=== PATIENT | female | born 1990 | race Caucasian/White ===

== ENCOUNTER 2018-09-23 22:19 | Inpatient (IN) | payer OTHER ==
--- NOTE | 2018-09-23 23:24 | C.PDOC ---
History Of Present Illness 28 year old female with PMHx of anxiety and hepatitis C presents to the ED requesting detox for cocaine, heroin and xanax abuse, Patient states oswald last use was today 1 hour [facility]. Patient reports she takes valium and xanax. Patient's LMP was on 08/14/18. Patient denies SI/HI, hallucinations, CP, SOB, injury, fall, trauma. Time Seen by Provider: 09/23/18 22:30 Chief Complaint (Nursing): Substance Abuse History Per: Patient History/Exam Limitations: intoxication Onset/Duration Of Symptoms: Hrs Current Symptoms Are (Timing): Still Present Modifying Factor(s): Narcotics, Cocaine, Other Associated Symptoms: denies: Depression, Suicidal Thoughts, Suicidal Plan Recent travel outside of the [place]: No Additional History Per: Patient Past Medical History Reviewed: Historical Data, Nursing Documentation, Vital Signs Vital Signs: Last Vital Signs Temp 98 F 09/23/18 22:26 Pulse 96 H 09/23/18 22:26 Resp 20 09/23/18 22:26 BP 129/88 09/23/18 22:26 Pulse Ox 99 09/23/18 22:26 - Medical History PMH: Anxiety, Hepatitis (Hep C) Denies: Diabetes, HIV, HTN, Seizures, Sexually Transmitted Disease Surgical History: - [facility] DRUG DETOXIFICATION (05/16/15) OTHER GROUP THERAPY (05/16/15) Family History: States: Unknown Family Hx - Social History Hx Alcohol Use: No Hx Substance Use: Yes - Immunization History Hx Tetanus Toxoid Vaccination: No Hx Influenza Vaccination: No Hx Pneumococcal Vaccination: No Review Of Systems Constitutional: Negative for: Fever, Chills Cardiovascular: Negative for: Chest Pain, Palpitations Respiratory: Negative for: Shortness of Breath Gastrointestinal: Negative for: Nausea, Vomiting, Abdominal Pain Skin: Negative for: Rash Neurological: Negative for: Weakness, Numbness Psych: Positive for: Anxiety. Negative for: Depression, Suicidal ideation Physical Exam - Physical Exam Appears: Non-toxic, No Acute Distress Skin: Normal Color, Warm, Dry Head: Atraumatic, Normacephalic Eye(s): bilateral: Normal Inspection Neck: Normal ROM, Supple Chest: Symmetrical Cardiovascular: Rhythm Regular Respiratory: Normal Breath Sounds, No Rales, No Rhonchi, No Wheezing Gastrointestinal/Abdominal: Soft, No Tenderness, No Guarding, No Rebound Extremity: Normal ROM, No Tenderness, No Swelling Neurological/Psych: Oriented x3, Normal Speech, Normal Cognition, Other (cooperative) Gait: Steady ED Course And Treatment - Laboratory Results Result Diagrams: 09/23/18 23:52 09/23/18 23:52 O2 Sat by Pulse Oximetry: 99 (ON RA) Pulse Ox Interpretation: Normal Medical Decision Making Medical Decision Making: Plan: * Labs * Crisis * UA Disposition - Disposition Disposition Time: 00:00 Condition: STABLE Forms: [facility] (Thai) - Clinical Impression Clinical Impression: Drug dependence - Scribe Statement The provider has reviewed the documentation as recorded by the Scribe Jordy Oliveira All medical record entries made by the Scribe were at my direction and personally dictated by me. I have reviewed the chart and agree that the record accurately reflects my personal performance of the history, physical exam, medical decision making, and the department course for this patient. I have also personally directed, reviewed, and agree with the discharge instructions and disposition. Physician Patient Turnover - . Patient Signed Over To: Alexandra Thompson Handoff Comments: pending crisis eval
[2018-09-23 23:58] LABS: BASO # 0.1 K/uL (0.0-0.2); BASO % 0.6 % (0.0-2.0); EOS # 0.1 K/uL (0.0-0.7); EOS % 0.7 % (0.0-4.0); HEMOGLOBIN 11.1 g/dL (11.0-16.0); LYMPH # 2.5 K/uL (1.0-4.3); LYMPH % 28.6 % (20.0-40.0); MEAN CELL VOLUME 81.9 fL (81.0-99.0); MEAN CORPUSCULAR HEMOGLOBIN 26.8 pg (27.0-31.0); MEAN CORPUSCULAR HGB CONC 32.8 g/dL (33.0-37.0); MEAN PLATELET VOLUME 8.1 fL (7.2-11.7); MONO # 0.4 K/uL (0.0-0.8); MONO % 4.3 % (0.0-10.0); NEUT # 5.7 K/uL (1.8-7.0); NEUT % 65.8 % (50.0-75.0); NRBC % 0.1 % (0.0-2.0); RBC 4.12 Mil/uL (3.80-5.20); RED CELL DISTRIBUTION WIDTH 14.9 % (11.5-14.5); WHITE BLOOD COUNT 8.6 K/uL (4.8-10.8)
[2018-09-24 00:02] LABS: SQUAMOUS EPITHIAL 2 /hpf (0-5); URINE AMORPHOUS SEDIMENT FEW /ul (<OCC); URINE BACTERIA OCC (<OCC); URINE BILIRUBIN NEGATIVE (NEGATIVE); URINE BLOOD NEGATIVE (NEGATIVE); URINE CLARITY Hazy (Clear); URINE COLOR Yellow (YELLOW); URINE GLUCOSE (UA) NORMAL (Normal); URINE LEUKOCYTE ESTERASE NEG Leu/uL (Negative); URINE PROTEIN NEGATIVE (NEGATIVE); URINE UROBILINOGEN NORMAL mg/dL (0.2-1.0)
[2018-09-24 00:04] LABS: HCG,QUALITATIVE URINE NEGATIVE (NEGATIVE)
[2018-09-24 00:10] LABS: ALBUMIN 4.4 g/dL (3.5-5.0); ALT/SGPT 35 U/L (9-52); AST/SGOT 42 U/L (14-36); BLOOD UREA NITROGEN 13 mg/dL (7-17); GFR NON-AFRICAN AMERICAN > 60
[2018-09-24 00:18] LABS: BARBITURATES, UR NEGATIVE (NEGATIVE); PHENCYCLIDINE, UR NEGATIVE (NEGATIVE)
[2018-09-24 00:21] LABS: BENZODIAZEPINES, UR POSITIVE (NEGATIVE); OPIATES, UR POSITIVE (NEGATIVE)
--- NOTE | 2018-09-24 06:11 | PCM.BM ---
<Eden Meyers - Last Filed: 09/24/18 06:09> Treatment Plan Problems - Problems identified on initial assessmt opiate dependence Date Initiated: 09/24/18 Time Initiated: 06:09 Benzodiazepine Dependence Date Initiated: 09/24/18 Time Initiated: 06:11 Treatment assets and liabiliti Patient Assests: ADL independent Patient Liabilities: substance abuse - Milieu Protocol Maintain good personal hygiene: daily Encourage regular showers, daily Remind patient to perform daily oral care, daily Assist patient to perform ADL's Maintain personal safety: every shift Educate patient to report safety concerns to staff, every shift Monitor environment for contraband/sharps Medication safety: Monitor for expected outcome, potential side effects: every shift, Assess barriers to learning: every shift, Assess readiness for medication education: every shift <Ben Rebollar - Last Filed: 09/26/18 16:43> - Diagnosis (1) Opioid use disorder, severe, dependence Status: Acute Interventions: 09/26/18 16:43 * Assess 7x/week regarding severity of withdrawal * Educate regarding risks, benefits, side effects and alternatives of medications * Use Motivational Interviewing for abstinence * Use CBT for relapse prevention * Medication management for withdrawal symptoms * Encourage medication assisted treatment (2) Cocaine use disorder, severe, dependence Status: Acute Interventions: 09/26/18 16:44 * Assess 7x/week regarding severity of withdrawal * Educate regarding risks, benefits, side effects and alternatives of medications * Use Motivational Interviewing for abstinence * Use CBT for relapse prevention * Medication management for withdrawal symptoms * Encourage medication assisted treatment (3) Moderate sedative, hypnotic, or anxiolytic use disorder Status: Acute Interventions: 09/26/18 16:45 * Assess 7x/week regarding severity of withdrawal * Educate regarding risks, benefits, side effects and alternatives of medications * Use Motivational Interviewing for abstinence * Use CBT for relapse prevention * Medication management for withdrawal symptoms * Encourage medication assisted treatment (4) Major depressive disorder, recurrent, mild Status: Acute Interventions: 09/26/18 16:44 * Assess/adjust medications daily and /or as needed * See patient on an individual basis 7x/week to assess level of manic behaviors and stability * Discuss risks, benefits, side effects and alternatives of medications <Thalia Aguilar - Last Filed: 09/27/18 09:37> Family Contact Family involvement: Famliy/SO not involved - Goals for Treatment Patient goals for treatment: Complete detox and transition to methadone maintenance program. Discharge/Continuing Care - Education Needs Education Needs: Patient Medication, Patient Diagnosis/Disease Process, Patient Coping Skills, Patient Anger Management skills, Patient Placement options, Patient Community resources - Discharge Discharge Criteria: No longer exhibiting s/s of withdrawal, Reduction of target symptoms Discharge to:: Home - Treatment Team Participation Patient/Family/SO Statement: 09/27/18 09:37 "I wanna try to get in to the methadone clinic in [place]." Discussed with Family/SO: No Was Patient/Family/SO present at Treatment Team Meeting: Yes
[2018-09-24] MEDS ORDERED: Aluminum Hydroxide/Magnesium Hydroxide Susp (30 mL) PO PRN (10:59)
--- NOTE | 2018-09-24 10:59 | PCM.PSYCH ---
Initial Psychiatric Evaluation - Initial Psychiatric Evaluation Type of Admission: Voluntary Legal Status: Capacity Chief Complaint (in patient's own words): He came in to get help in heroin detox.' History of Present Illness and Precipitating Events: Patient is a 25 years old female currently unemployed, who came to the [facility] ED to get help in heroin and benzodiazepine detox. Patient past history of one inpatient psychiatric hospitalization and reports history of follow-up with an unknown psychiatrist in the past. She also reports history of multiple detoxes in the past. As per the patient her grandmother pas sed away last month, since then she has been using increasing amounts of heroin, cocaine and Xanax. Patient reports that she has been injecting up to 2 bundles of heroin along with half grams to 1 g of cocaine along with 2-4 mg of Xanax daily. Patient reports that yesterday she consumed almost 1 bundle of heroin along with half a gram of cocaine and started experiencing withdrawal symptoms so she came to the hospital to get help. She reports withdrawal symptoms including nausea, vomiting, cramps, joint pains, sweating and headaches. Pt. reports that she feels isolated and depressed. However she denies any feelings of hopelessness or helplessness. She denies any auditory hallucinations or any paranoia. She denies any suicidal ideation or any homicidal ideation. Past medical history Hep C Current Medications: Active Medications Generic Name Dose Route Start Last Admin Trade Name Freq PRN Reason Stop Dose Admin Clonidine HCl 0.1 mg 09/24/18 05:09 Catapres PO Q4 PRN opiate withdrawal symptoms Hydroxyzine HCl 25 mg 09/24/18 05:09 09/24/18 05:47 Atarax PO 25 mg Q6 PRN Administration Anxiety Ibuprofen 600 mg 09/24/18 05:11 Motrin Tab PO Q6 PRN Cough Past Psychiatric History - Past Psychiatric History Previous Treatment History: Inpatient Pertinent Medical Hx (Current Medical&Sleep Prob, Allergies): Allergies Allergy/AdvReac Type Severity Reaction Status Date / Time No Known Allergies Allergy Verified 09/23/18 22:41 Trazodone HCl 150 mg PO HS 09/23/18 diaZEpam [Valium] 5 mg PO BID 09/23/18 Review of Systems - Review of Systems All systems: reviewed and no additional remarkable complaints except - Psychiatric Psychiatric: Anxiety, Irritability. absent: Suicidal Ideation Mental Status Examination - Personal Presentation Personal Presentation: Looks stated age - Affect Affect: Constricted - Motor Activity Motor Activity: Calm - Reliability in Providing Information Reliability in Providing Information: Fair - Speech Speech: Organized - Mood Mood: Anxious - Formal Thought Process Formal Thought Process: No Impairment - Obsessions/Compulsions Obsessions: No Compulsions: No - Cognitive Functions Orientation: Person, Place, Situation, Time Sensorium: Alert Attention/Concentration: Attentive Abstract Thinking: [place] Estimate of Intelligence: Below average Judgement: Imparied, as evidence by: Poor judgement, Intact, as evidence by: Insight regarding need for hospitalization - Risk Risk: Withdrawal, Diminished functioning - Limitations Limitations: Living alone DSM 5 DX - DSM 5 DSM 5 Diagnosis: Opioid use disorder severe Opioid withdrawal Cocaine use disorder severe Sedated/hypnotic use disorder moderate Depressive disorder - Recommended/Plan of Treatment Treatment Recommendations and Plan of Treatment: Opioid use disorder severe Opioid withdrawal Cocaine use disorder severe Sedated/hypnotic use disorder moderate Depressive disorder CBT Psychoeducation Supportive therapy and group therapy Hydroxyzine 25 g p.o. every 6 hours as needed Trazodone 50 mg p.o. nightly Gabapentin 100 mg p.o. 3 times daily Methadone taper Detox as needed medications
--- NOTE | 2018-09-25 21:00 | PCM.PYCHPN ---
Psychiatric Progress Note - Psychiatric Progress Note Patient seen today, length of contact: 15 minutes Patient Chief Complaint: I'm not feeling better. Problems Identified/Issues Discussed: Patient seen, chart reviewed, case discussed with the staff. Issues related to illness and treatment were discussed with the patient and staff. Reported compliant with treatment with no adverse affects. Tolerating treatment very well. Patient reported not feeling better and has abdominal cramps, sweating, running nose, cold skin, tiredness, headache and decreased sleep. Mood reported as anxious. Affect appropriate. Calm and partially cooperative. Awake, alert and oriented 3. Speech soft with good eye contact. Aftercare discussed with the patient. At the time of evaluation, patient denied any delusions, auditory or visual hallucinations, suicidal ideations or homicidal ideations. Medical Problems: Hepatitis C Diagnostic Results: Reviewed Medication Change: No Medical Record Reviewed: Yes Mental Status Examination - Cognitive Function Orientation: Person, Place, Situation, Time Memory: Intact Attention: WNL Concentration: WNL Association: WNL Fund of Knowledge: [facility] Decription of patient's judgement and insights: Fair - Mood Mood: Anxious - Affect Affect: Other (Appropriate) - Speech Speech: Appropriate - Formal Thought Process Formal Thought Process: No Impairment Psychotic Thoughts and Behaviors: None - Suicidal Ideation Suicidal Ideation: No - Homicidal Ideation Homicidal Ideation: No Goal/Treatment Plan - Goal/Treatment Plan Need for Continued Stay: Remain at risks for inpatient hospitalization, Discha rge may exacerbated symptoms, Severe functional impairment Progress Toward Problem(s) and Goals/Treatment Plan: Some improvement with treatment. Patient/staff education. Supportive therapy. CBT for relapse prevention. [place] for abstinence. Continue treatment as before with methadone taper for opiate withdrawal symptoms and other when necessary medications. Estimated Date of D/C: 09/29/18 - Smoking Cessation Smoking Cessation Initiated: No
--- NOTE | 2018-09-26 16:53 | PCM.PYCHPN ---
Psychiatric Progress Note - Psychiatric Progress Note Patient seen today, length of contact: 15 minutes Patient Chief Complaint: I'm feeling little better. Problems Identified/Issues Discussed: Patient seen, chart reviewed, case discussed with the staff. Issues related to illness and treatment were discussed with the patient and staff. Reported compliant with treatment with no adverse affects. Tolerating treatment very well. Patient reported feeling little better. Still has abdominal cramps, sweating, running nose, cold skin, tiredness, headache and decreased sleep but most of the symptoms are less than before. Mood reported as anxious. Affect appropriate. Calm and partially cooperative. Awake, alert and oriented 3. Speech soft with good eye contact. Aftercare discussed with the patient. At the time of evaluation, patient denied any delusions, auditory or visual hallucinations, suicidal ideations or homicidal ideations. Medical Problems: Hepatitis C Diagnostic Results: Reviewed DSM 5 Symptoms Update: Some improvement with treatment. Medication Change: No Medical Record Reviewed: Yes Mental Status Examination - Cognitive Function Orientation: Person, Place, Situation, Time Memory: Intact Attention: WNL Concentration: WNL Association: [facility] Fund of Knowledge: [facility] Decription of patient's judgement and insights: Fair - Mood Mood: Anxious (Less than before) - Affect Affect: Other (Appropriate) - Speech Speech: Appropriate - Formal Thought Process Formal Thought Process: No Impairment Psychotic Thoughts and Behaviors: None - Suicidal Ideation Suicidal Ideation: No - Homicidal Ideation Homicidal Ideation: No Goal/Treatment Plan - Goal/Treatment Plan Need for Continued Stay: Remain at risks for inpatient hospitalization, Discharge may exacerbated symptoms, Severe functional impairment Progress Toward Problem(s) and Goals/Treatment Plan: Some improvement with treatment. Patient/staff education. Supportive therapy. CBT for relapse prevention. [place] for abstinence. Continue treatment as before. Estimated Date of D/C: 09/29/18 - Smoking Cessation Smoking Cessation Initiated: No
[2018-09-27] MEDS ORDERED: Influenza Vaccine 60 MCG/0.5 ML SYR (3 yr & up) IM ONE (11:00)
[2018-09-27 14:27] VITALS: BP 107/74; PULSE 65; RESP 18; TEMP 97.8; O2SAT 98
--- NOTE | 2018-09-27 23:36 | PCM.PYCHDC ---
Mental Status Examination - Mental Status Examination Orientation: Person, Place, Situation, Time Memory: Intact Mood: Neutral Affect: Other (Appropriate) Speech: Appropriate Attention: WNL Concentration: WNL Association: WNL Fund of Knowledge: WNL Formal Thought Process: No Impairment Description of patient's judgement and insight: Poor Psychotic Thoughts and Behaviors: None Suicidal Ideation: No Current Homicidal Ideation?: No Discharge Summary - Discharge Note Reason for Hospitalization: Opioid use disorder severe Cocaine use disorder severe Anxiolytic use disorder moderate Depressive disorder Laboratory Data: Reviewed Consultations:: List each consultation separately and include: 1. Reason for request. 2. Findings. 3. Follow-up Summary of Hospital Course include:: 1. Description of specific treatment plan utilized for patients during their course of treatmen. 2. Summarize the time- course for resolution of acute symptoms and/or regressed behaviors. 3. Describe issues identified and worked on during hospitalization. 4. Describe medication utilized. 5. Describe medical problems identified and treated. 6. Reassessment of suicide risk Summary of Hospital Course: Patient is a 25 years old female currently unemployed, who came to the [facility] ED to get help in heroin and benzodiazepine detox. Patient past history of one inpatient psychiatric hospitalization and reports h istory of follow-up with an unknown psychiatrist in the past. She also reports history of multiple detoxes in the past. As per the patient her grandmother last month, since then she has been using increasing amounts of heroin, cocaine and Xanax. Patient reports that she has been injecting up to 2 bundles of heroin along with half grams to 1 g of cocaine along with 2-4 mg of Xanax daily. Patient reports that yesterday she consumed almost 1 bundle of heroin along with half a gram of cocaine and started experiencing withdrawal symptoms so she came to the hospital to get help. She reports withdrawal symptoms including nausea, vomiting, cramps, joint pains, sweating and headaches. Pt. reports that she feels isolated and depressed. However she denies any feelings of hopelessness or helplessness. She denies any auditory hallucinations or any paranoia. She denies any suicidal ideation or any homicidal ideation. Past medical history Hep C During her stay in the hospital patient was treated with methadone taper opioid withdrawal symptoms. Patient was also treated with other PRN medications. Patient was attending groups and other activities on the unit. Patient started feeling better. Today patient decided to leave the unit without completion of treatment. Patient was educated and encouraged to finish her treatment, patient refused. Patient was educated that in case of any adverse events including overdose, relapse, decompensation or even of the patient, patient will be responsible for her acts. Patient understood with above but still refused to stay and left the unit AGAINST MEDICAL ADVICE. - Diagnosis (1) Opioid use disorder, severe, dependence Status: Acute (2) Cocaine use disorder, severe, dependence Status: Acute (3) Moderate sedative, hypnotic, or anxiolytic use disorder Status: Acute (4) Major depressive disorder, recurrent, mild Status: Acute - Final Diagnosis (DSM 5) Condition upon Discharge: FAIR Disposition: AGAINST MEDICAL ADVICE Follow-up Treatment Plan: Patient is planning to go to methadone maintenance treatment program for follow- up care after discharge from the hospital. - Smoking Cessation Smoking Cessation Medication prescribed: No - Antipsychotic Medications Pt discharged on 2 or more routine antipsychotic medications: No
== END 2018-09-27 15:00 | disposition left against medical advice (07) | DRG 743 ==
LOC: C.ER 22:19 → C.7D 09-24 03:20
PROVIDERS: ADMIT Psychiatry & Neurology Psychiatry; ATTEND Psychiatry & Neurology Psychiatry
PROC: HZ2ZZZZ Detoxification Services for Substance Abuse Treatment (ICD-10-PCS; principal; 2018-09-24)
PROC: HZ56ZZZ Individual Psychotherapy for Substance Abuse Treatment, Psychoeducation (ICD-10-PCS; 2018-09-24)
PROC: HZ42ZZZ Group Counseling for Substance Abuse Treatment, Cognitive-Behavioral (ICD-10-PCS; 2018-09-24)
PROC: HZ46ZZZ Group Counseling for Substance Abuse Treatment, Psychoeducation (ICD-10-PCS; 2018-09-24)
PROC: GZHZZZZ Group Psychotherapy (ICD-10-PCS; 2018-09-24)
PROC: GZ58ZZZ Individual Psychotherapy, Cognitive-Behavioral (ICD-10-PCS; 2018-09-24)
PROC: GZ56ZZZ Individual Psychotherapy, Supportive (ICD-10-PCS; 2018-09-24)
PROC: HZ52ZZZ Individual Psychotherapy for Substance Abuse Treatment, Cognitive-Behavioral (ICD-10-PCS; 2018-09-24)
PROC: HZ59ZZZ Individual Psychotherapy for Substance Abuse Treatment, Supportive (ICD-10-PCS; 2018-09-24)
DX: F11.23 Opioid dependence with withdrawal (principal); B19.20 Unspecified viral hepatitis C without hepatic coma; F14.20 Cocaine dependence, uncomplicated; F13.20 Sedative, hypnotic or anxiolytic dependence, uncomplicated; F33.0 Major depressive disorder, recurrent, mild